=== PATIENT | male | born 1985 | race African-American/Black ===

== ENCOUNTER 2016-10-18 02:26 | Emergency (ER) | payer MEDICAID ==
[~2016-10-18] VITALS: Ht 170.2 cm; Wt 78.0 kg
[2016-10-18] MEDS ORDERED: IPRATROPIUM/ALBUTEROL 0.5-3(2.5)MG/3ML NEB HHN ONE (05:00)
[2016-10-18] MEDS ORDERED: PREDNISONE 20MG TABLET PO ONE (05:00)
[2016-10-18 05:48] VITALS: BP 144/89
== END 2016-10-18 05:49 | disposition home or self-care (01) ==
LOC: ER 02:27
DX: J45.909 Unspecified asthma, uncomplicated (principal); F17.200 Nicotine dependence, unspecified, uncomplicated; F12.10 Cannabis abuse, uncomplicated
CPT/HCPCS: 99283; J7512; Z7610; J7620

== ENCOUNTER 2017-07-02 02:04 | Emergency (ER) | payer SELFPAY ==
[~2017-07-02] VITALS: Ht 172.7 cm; Wt 79.0 kg
[2017-07-02] MEDS ORDERED: IPRATROPIUM BROMIDE (0.02%) 0.5MG/2.5ML NEB HHN STA (05:13)
[2017-07-02] MEDS ORDERED: ALBUTEROL (0.083%) 2.5MG/3ML NEB HHN STA (05:13)
[2017-07-02] MEDS ORDERED: PREDNISONE 20MG TABLET PO STA (05:13)
[2017-07-02] MEDS ORDERED: IPRATROPIUM/ALBUTEROL 0.5-3(2.5)MG/3ML NEB ONE (05:33)
[2017-07-02] MEDS ORDERED: ALBUTEROL (0.5%) 2.5MG/0.5ML NEB HHN ONE (05:34)
[2017-07-02 06:15] VITALS: BP 140/95
== END 2017-07-02 06:20 | disposition home or self-care (01) ==
LOC: ER 02:09
DX: J45.901 Unspecified asthma with (acute) exacerbation (principal); F17.210 Nicotine dependence, cigarettes, uncomplicated; F12.10 Cannabis abuse, uncomplicated
CPT/HCPCS: 94640; 99283; 99406; J7512; J7611; J7620; Z7610

== ENCOUNTER 2017-08-09 01:49 | Emergency (ER) | payer SELFPAY ==
[~2017-08-09] VITALS: Ht 172.7 cm; Wt 72.0 kg
[2017-08-09] MEDS ORDERED: IBUPROFEN 800MG TABLET PO ONE (06:15)
[2017-08-09 06:33] VITALS: BP 143/83
== END 2017-08-09 09:17 | disposition home or self-care (01) ==
LOC: ER 01:49
DX: S60.221A Contusion of right hand, initial encounter (principal); J45.909 Unspecified asthma, uncomplicated; F17.200 Nicotine dependence, unspecified, uncomplicated; F12.10 Cannabis abuse, uncomplicated; W03.XXXA Other fall on same level due to collision with another person, initial encounter; Y93.67 Activity, basketball; Y92.89 Other specified places as the place of occurrence of the external cause
CPT/HCPCS: 73130; 99284; Z7610; A4565

== ENCOUNTER 2018-05-03 16:22 | Emergency (ER) | payer SELFPAY ==
[~2018-05-03] VITALS: Ht 172.7 cm; Wt 79.0 kg
[2018-05-03 21:08] LABS: CLARITY URINE CLEAR (CLEAR); COLOR URINE YELLOW (YELLOW); KETONES URINE TRACE (NEGATIVE); LEUKOCYTE ESTERASE URINE 1+ (NEGATIVE); NITRITE URINE NEGATIVE (NEGATIVE); OCCULT BLOOD URINE NEGATIVE (NEGATIVE); PROTEIN URINE NEGATIVE (NEGATIVE)
[2018-05-03 21:39] VITALS: BP 128/81
== END 2018-05-03 21:39 | disposition home or self-care (01) ==
LOC: ER 16:22
DX: N39.0 Urinary tract infection, site not specified (principal); J45.909 Unspecified asthma, uncomplicated; Z90.49 Acquired absence of other specified parts of digestive tract
CPT/HCPCS: 99283

== ENCOUNTER 2019-08-31 02:09 | Emergency (ER) | payer SELFPAY ==
[~2019-08-31] VITALS: Ht 170.2 cm; Wt 79.0 kg
[2019-08-31 03:20] VITALS: BP 118/73
[2019-08-31] MEDS ORDERED: DIPHENHYDRAMINE 25MG CAPSULE PO ONE (03:45)
== END 2019-08-31 04:07 | disposition home or self-care (01) ==
LOC: ER 02:09
DX: L50.9 Urticaria, unspecified (principal); T78.40XA Allergy, unspecified, initial encounter; X58.XXXA Exposure to other specified factors, initial encounter; J45.909 Unspecified asthma, uncomplicated; Z98.890 Other specified postprocedural states
CPT/HCPCS: 99281